=== PATIENT | female | born 1960 | race Caucasian/White ===

== ENCOUNTER 2016-12-09 15:55 | Emergency (ER) | payer OTHER ==
[2016-12-09 18:41] LABS: BASOPHIL# 0.1 X10e3 (0-0.3); BASOPHIL% 0.8 % (0-2.5); EOSINOPHIL% 0.2 % (0.0-7.0); HEMATOCRIT 44.2 % (35.0-45.0); HEMOGLOBIN 14.7 gm/dL (12.0-16.0); LYMPHOCYTE# 1.6 X10e3 (1.0-3.5); LYMPHOCYTE% 20.3 % (17.0-45.0); MEAN CELL VOLUME 83.4 FL (83-96); MEAN CORPUSCULAR HEMOGLOBIN 27.7 PG (28-34); MEAN CORPUSCULAR HGB CONC 33.2 g/dL (30-36); MEAN PLATELET VOLUME 8.8 FL (6.5-11.5); MONOCYTE# 0.4 X10e3 (0-1.0); MONOCYTE% 5.2 % (3.0-12.0); NEUTROPHIL# 5.9 X10e3 (1.5-7.1); NEUTROPHIL% 73.5 % (40-75); PLATELET COUNT 280 X10e3 (140-420); RED BLOOD COUNT 5.29 X10e (3.90-5.30); RED CELL DISTRIBUTION WIDTH 13.8 % (11.0-15.5); WHITE BLOOD COUNT 8.1 X10e3 (4.0-10.5)
[2016-12-09 18:47] LABS: DIFF IND NO
[2016-12-09 19:15] LABS: BILIRUBIN, DIRECT 0.2 mg/dL (0.0-0.2); BILIRUBIN,INDIRECT 1.3 mg/dL (0.0-0.9); BILIRUBIN,TOTAL 1.5 mg/dL (0.2-2.0); BUN/CREATININE RATIO 17.14; CALCIUM SERUM 9.7 mg/dL (8.4-10.2); CREATININE SERUM 0.7 mg/dL (0.6-1.4); GLOM FILT RATE Estimated 96.2 mL/min (>60); POTASSIUM 3.3 mmol/L (3.5-5.1)
[2016-12-09 19:27] LABS: URINE SOURCE CLEAN CATCH
[2016-12-09 19:31] LABS: URINE APPEARANCE CLOUDY; URINE BILIRUBIN NEG (NEG); URINE BLOOD 2+ (NEG); URINE COLOR YELLOW; URINE GLUCOSE NEG (NEG); URINE KETONE 2+ (NEG); URINE LEUKOCYTE ESTERASE 1+ (NEG); URINE NITRATE NEG (NEG); URINE PROTEIN 1+ (NEG); URINE SPECIFIC GRAVITY 1.026 (1.003-1.035); URINE UROBILINOGEN 0.2 MG/DL (NEG)
[2016-12-09 19:34] LABS: CULTURE INDICATED? YES; URINE BACTERIA AUWI 1+ (NEGATIVE); URINE SQUAMOUS EPITHELIAL CELL FEW /[HPF]; UWBCS1 AUWI 25-50 (0-5)
[2016-12-09 20:00] LABS: AMPHETAMINE NEG (NEG); BARBITURATES NEG (NEG); BENZODIAZEPINES POS (NEG); COCAINE NEG (NEG); MARIJUANA POS (NEG); OPIATES POS (NEG); TRICYCLIC ANTIDEPRESSANTS NEG (NEG); U METHADONE POS (NEG)
== END 2016-12-09 23:23 ==
LOC: CED 15:55
PROVIDERS: Student in an Organized Health Care Education/Training Program
DX: F11.23 Opioid dependence with withdrawal (principal); N39.0 Urinary tract infection, site not specified; F19.10 Other psychoactive substance abuse, uncomplicated; Z88.8 Allergy status to other drugs, medicaments and biological substances
CPT/HCPCS: 36415; 80048; 80076; 80307; 81003; 85025; 87086; 96365; 96375; 99285; J2060; J2543

== ENCOUNTER 2016-12-09 20:00 | Inpatient (IN) | payer OTHER ==
--- NOTE | ~2016-12-09 | DS ---
Unit #: [id number] #: [id number] Patient: GONZALO MATHEW [id number] [facility] [address] [place] [address] [id number] MR#: [id number] NAME: GONZALO MATHEW. ROOM: P176 Age: 56 Sex: F Admission Date: 12/10/2016 : 1960 Discharge Date: 12/15/2016 Attending Physician: Sundar Justice M.D. Primary Care Physician: Primary Care Physician No DISCHARGE SUMMARY IDENTIFYING DATA Ms. Mathew is a 56-year-old white female, who is a resident of [place], who was transferred to us from emergency room at [facility] on a voluntary basis. DISCHARGE DIAGNOSES Psychiatric: Opioid dependence, moderate and acute withdrawals; benzodiazepine dependence, moderate and acute withdrawals; opioid-induced mood disorder. Medical: Fibromyalgia, spinal stenosis, bulging disks. Stressors: Moderate psychosocial stressors. HISTORY OF PRESENT ILLNESS Please see initial psychiatric evaluation for details. PAST PSYCHIATRIC HISTORY Please see initial psychiatric evaluation for details. PAST MEDICAL HISTORY Please see initial psychiatric evaluation for details. HOSPITAL COURSE The patient was admitted to the adult psychiatric and chemical dependency unit at [facility] and was oriented to the hospital environment. Routine p.r.n. medications were initiated, and she was started back on her home medications and detox protocol was initiated and she was closely monitored. She was taking medications regularly and was tolerating them fairly well and was able to show a decent therapeutic response with improvement in depression and anxiety and was able to come out of the detox without any complications and was willing to continue treatment on an outpatient basis and as such, it was decided that she will be discharged home and will continue treatment on an outpatient basis. DISCHARGE MEDICATIONS None. DISCHARGE CONDITION Stable. PROGNOSIS Fair. Dictated by... Unit #: [id number] #: [id number] Patient: GONZALO MATHEW Yahir Medeiros/francesco TD: 12/15/2016 11:46 JOB #: [id number] DISCHARGE SUMMARY Page 1 of 1 X Sundar Justice MD X DISCHARGE SUMMARY
--- NOTE | ~2016-12-09 | PN ---
Unit #: [id number] #: [id number] Patient: GONZALO WANG [id number] [facility] [address] [place] [address] [id number] MR#: [id number] NAME: GONZALO WANG. ROOM: 76 Age: 56 Sex: F Admission Date: 12/10/2016 : 1960 Attending Physician: Sundar Justice M.D. Admitting Physician: Sundar Justice M.D. Primary Care Physician: Primary Care Physician Donna NICHOLS NOTES DATE December 11, 2016 DISCUSSION Ms. Wang is a 56-year-old white female, who was seen today and chart was reviewed and the case was discussed with the staff. She has been anxious, withdrawn, and rather seclusive to herself. Meanwhile, she has been cooperative with the treatment recommendations and she has been taking the medications and tolerating them fairly well with no reported side effects. MENTAL STATUS EXAMINATION Middle-aged white female, who was casually dressed with fair personal hygiene and appears to be in no acute distress or discomfort. She was awake and alert on interaction with intact orientation. Her mood is anxious with a congruent affect. The patient denies any suicidal or homicidal ideations. Her insight and judgment remain slightly impaired. TREATMENT PLAN 1. We will continue her on her current medications and treatment protocol, and will monitor her response to the medications, and make further adjustments as needed. 2. We will continue to followup. Dictated by... Yahir Medeiros/pardeep TD: 12/11/2016 11:41 JOB #: [id number] Unit #: [id number] #: [id number] Patient: GONZALO WANG VANIA PROGRESS NOTES Page 1 of 1 X Sundar Justice MD PROGRESS NOTE
--- NOTE | ~2016-12-09 | PN ---
Unit #: [id number] #: [id number] Patient: GONZALO WANG [id number] [facility] [address] [place] [address] [id number] MR#: [id number] NAME: GONZALO WANG. ROOM: P176 Age: 56 Sex: F Admission Date: 12/10/2016 : 1960 Attending Physician: Sundar Justice M.D. Admitting Physician: Sundar Justice M.D. Primary Care Physician: Primary Care Physician Donna NICHOLS NOTES DATE December 13, 2016 DISCUSSION Ms. Wang is a 56-year-old white female, who was seen today and chart was reviewed and the case was discussed with the staff. The patient has been anxious, withdrawn, and reports still not feeling good and unable to sleep at night despite increasing trazodone to 150, and also been complaining of stomach cramps, and feeling restless, and anxious, uncomfortable. MENTAL STATUS EXAMINATION Middle-aged white female, who was casually dressed with fair personal hygiene and appears to be in slight distress and discomfort. She was awake and alert on interaction with intact orientation. Her mood was anxious with a congruent affect. The patient denies any suicidal or homicidal ideations. Her insight and judgment remain slightly impaired. TREATMENT PLAN 1. We will continue her on her current medications and treatment protocol, and will monitor her response to the medications, and make further adjustments as needed. 2. We will switch the trazodone to doxepin. 3. We will continue to followup. Dictated by... Yahir Medeiros/pardeep TD: 12/14/2016 06:41 JOB #: [id number] Unit #: [id number] #: [id number] Patient: GONZALO WANG VANIA PROGRESS NOTES Page 1 of 1 X Sundar Justice MD PROGRESS NOTE
--- NOTE | ~2016-12-09 | PA ---
Unit #: [id number] #: [id number] Patient: GONZALO MATHEW [id number] [facility] [address] [place] [address] [id number] I MR#: [id number] NAME: GONZALO MATHEW. ROOM: P176 Age: 56 Sex: F Admission Date: 12/10/2016 : 1960 Date of Assessment: 12/10/2016 Attending Physician: Sundar Justice M.D. Admitting Physician: Sundar Justice M.D. Primary Care Physician: Primary Care Physician No PSYCHIATRIC ASSESSMENT DATE OF SERVICE 12/10/2016. IDENTIFYING DATA Ms. Mathew is a 56-year-old white female, who is a resident of [place], [place], and was transferred to us from emergency room at [facility] on a voluntary basis. CHIEF COMPLAINT "I've been taking too many pain medications." HISTORY OF PRESENT ILLNESS Ms. Mathew is a 56-year-old white female, who was brought to the hospital by her family and was seen to be quite compromised and sent out to emergency room at [facility] for medical clearance, and upon presentation, the patient stated "I've been taking too many pain medications. My medicine for anxiety ain't working. I'm nervous as a wreck and I did not use to be that way. I'm going to a pain clinic because I have fibromyalgia. I'm always in so much pain, I cannot stand, but I cannot go to my pain clinic and I'm hurting from the withdrawals." The patient reports that she has been using 12 hydrocodone 10 mg a day and 2 to 6 Xanax a day, kind of take at least 2 Xanax a day, but most days I take more than that." She reports that her last use was 3 in the morning when she stated that she took 15 mg hydrocodone and 2 mg Xanax. She does report depression, anxiety, and irritability and was seen to be in significant distress and discomfort with a CIWA of 16 and COWS of 18 indicating significant withdrawals from both opioids and benzodiazepines; however, she denies any suicidal ideations, intent, or plan. SUBSTANCE ABUSE HISTORY The patient reports opioids and benzodiazepines to be her drug of choice and has been using both of those in excess amounts on a daily basis. PAST PSYCHIATRIC HISTORY The patient has had a history of inpatient psychiatric treatment at [facility], and review of the medical records indicate that currently she is not active in any treatment program, is not seeing a psychiatrist, and is not taking any psychotropic medications. PAST MEDICAL HISTORY Fibromyalgia, bulging disks, sciatica, and spinal stenosis. ALLERGIES Unit #: [id number] #: [id number] Patient: GONZALO MATHEW, ElvisBran penn, and Virgil. PERSONAL AND SOCIAL HISTORY A 56-year-old white female, who reports that she is and lives at home with her family and has fairly decent social support system. MENTAL STATUS EXAMINATION Middle-aged white female, who was casually dressed with fair personal hygiene, appears to be in distress and discomfort. She was awake and alert on interaction with intact orientation. Her mood was anxious and depressed with a congruent affect. Her speech was slow and goal directed. She denies any suicidal or homicidal ideations and also denies any auditory or visual hallucinations. Her insight and judgment remain significantly impaired. DIAGNOSTIC IMPRESSION Psychiatric: Opioid dependence, moderate, in acute withdrawals; benzodiazepine dependence, moderate, in acute withdrawals; and opioid-induced mood disorder. Medical: Fibromyalgia, spinal stenosis, and bulging disks. Stressors: Moderate psychosocial stressors. TREATMENT PLAN 1. The patient has presented with a history of substance abuse and mood disorder and has been decompensating and will need inpatient hospitalization for detoxification, safety, and stabilization. We will start her back on her home medications and detox protocol will be initiated as well. 2. Supportive therapy was provided to the patient. 3. Safe, structured, and nourishing environment will be provided. ESTIMATED LENGTH OF STAY 5 to 7 days. ABILITY TO HELP SELF Limited. WILLINGNESS TO HELP SELF The patient appears to be willing to help self. STRENGTHS 1. Communicative. 2. Cooperative. PROBLEMS 1. Chronic dysphoric symptoms. 2. Chronic chemical dependency. 3. Poor social support system. DISCHARGE CRITERIA This will be contingent upon the patient's ability to go through detox without having any significant withdrawal symptoms and her ability to stay safe to herself, particularly after discharge from the hospital. Dictated by... Sundar Justice M.D. Unit #: [id number] #: [id number] Patient: GONZALO MATHEW ANIRUDH/francesco TD: 12/10/2016 18:32 JOB #: [id number] PSYCHIATRIC ASSESSMENT Page 1 of 1 X Sundar Justice MD PSYCHIATRIC ASSESSMENT
--- NOTE | ~2016-12-09 | PN ---
Unit #: [id number] #: [id number] Patient: GONZALO WANG [id number] [facility] [address] [place] [address] [id number] I MR#: [id number] NAME: GONZALO WANG. ROOM: P176 Age: 56 Sex: F Admission Date: 12/10/2016 : 1960 Attending Physician: Sundar Justice M.D. Admitting Physician: Sundar Justice M.D. Primary Care Physician: Primary Care Physician Donna NICHOLS NOTES DATE December 14, 2016 DISCUSSION Ms. Wang is a 56-year-old white female, who was seen today and chart was reviewed and the case was discussed with the staff. She reports doing fairly well but still has been complaining of persistent anxiety and reports that she has been taking her medications and tolerating them fairly well with no reported side effects. MENTAL STATUS EXAMINATION Middle-aged white female, who was casually dressed with fair personal hygiene and appears to be in no acute distress or discomfort. She was awake and alert with impaired attention and concentration. Her mood was anxious with a congruent affect. The patient denies any suicidal or homicidal ideations. Her insight and judgment remain slightly impaired. TREATMENT PLAN 1. We will continue her on her current medications and treatment protocol, and will monitor her response to the medications, and make further adjustments as needed. 2. We will continue to followup. Dictated by... Yaihr Medeiros/pardeep TD: 12/15/2016 08:11 JOB #: [id number] Unit #: [id number] #: [id number] Patient: GONZALO WANG VANIA PROGRESS NOTES Page 1 of 1 X Sundar Justice MD PROGRESS NOTE
--- NOTE | ~2016-12-09 | PN ---
Unit #: [id number] #: [id number] Patient: GONZALO WANG [id number] [facility] [address] [place] [address] [id number] MR#: [id number] NAME: GONZALO WANG. ROOM: P176 Age: 56 Sex: F Admission Date: 12/10/2016 : 1960 Attending Physician: Sundar Justice M.D. Admitting Physician: Sundar Justice M.D. Primary Care Physician: Primary Care Physician Donna CARO PROGRESS NOTES DATE 12/12/2016 DISCUSSION Ms. Wang is a 56-year-old white female who was seen today and chart was reviewed and case was discussed with the staff. She has been anxious, withdrawn and rather seclusive to herself. Meanwhile, she has been cooperative with treatment recommendations and has been taking medications and tolerating them fairly well with no reported side effects. MENTAL STATUS EXAMINATION Middle-aged white female who was casually dressed with fair personal hygiene and appears to be in no acute distress or discomfort. She was awake and alert with intact orientation. Her mood was anxious with congruent affect. She denies any suicidal or homicidal ideation and also denies any auditory or visual hallucinations. Her insight and judgement remains slightly impaired. TREATMENT PLAN 1. Will continue on current medications and treatment protocol and will monitor her response to the medications and make further adjustments as needed. 2. Will continue to follow up. Dictated by... Yahir Medeiros/joesph TD: 12/12/2016 16:29 JOB #: [id number] Unit #: [id number] #: [id number] Patient: GONZALO WANG VANIA PROGRESS NOTES Page 1 of 1 X Sundar Justice MD PROGRESS NOTE
--- NOTE | ~2016-12-09 | HP ---
Unit #: [id number] #: [id number] Patient: GONZALO MATHEW [id number] [place] [address] [id number] MR#: [id number] NAME: GONZALO MATHEW. ROOM: P176 Age: 56 Sex: F Admission Date: 12/10/2016 : 1960 Attending Physician: Sundar Justice M.D. Admitting Physician: Sundar Justice M.D. Primary Care Physician: Primary Care Physician No HISTORY AND PHYSICAL HISTORY OF PRESENT ILLNESS Gonzalo is a 56 year old admitted to [facility] because of her polysubstance abuse which includes opioids and benzodiazepines. PAST MEDICAL HISTORY 1. Long history of polysubstance abuse to include opioids and benzodiazepines. 2. Graves disease. a. Radioactive iodine. 3. Hypothyroidism. PAST SURGICAL HISTORY 1. Right shoulder. 2. x1. ALLERGIES Ceclor, Elavil, Remeron, Lyrica. SOCIAL HISTORY She denies cigarettes and alcohol. Admits to a history of poly-illicit substance abuse. FAMILY HISTORY Medically noncontributory. REVIEW OF SYSTEMS CONSTITUTIONAL: No fever or chills. HEENT: Denies any sore throat, ear pain or runny nose. CARDIOVASCULAR: Denies chest pain, irregular heart rhythm or palpitations. CHEST: Denies shortness of breath or cough. No hemoptysis. GASTROINTESTINAL: Denies nausea, vomiting, diarrhea or chronic constipation. ENDOCRINE: Denies history of increased thirst or urination. No recent significant weight loss or gain. GENITOURINARY: Denies dysuria, frequency, or hematuria. SKIN: Denies any rashes. HEMATOLOGIC: Denies history of increased bleeding or bruising. MUSCULOSKELETAL: Denies any hot, swollen joints. No generalized muscle pain. NEUROLOGIC: Denies problems with vision or speech. No frequent, severe headaches. No numbness, tingling or weakness in any extremities. Denies loss of bladder or bowel control. Unit #: [id number] #: [id number] Patient: GONZALO MATHEW CURRENT MEDICATIONS 1. Detox protocol. 2. Synthroid 0.125 mg daily. 3. Multivitamin 1 daily. PHYSICAL EXAMINATION GENERAL: Alert, well-nourished, in no apparent distress. VITAL SIGNS: Blood pressure 120/84, heart rate 80, respirations 16, temperature 98.6. WEIGHT: 145. HEIGHT: 5 feet 3 inches. SKIN: Warm and dry without rash or lesion. HEENT: Normocephalic. TMs not viewed. Oral and nasal passages clear. Conjunctivae clear. PERRLA. EOMs intact. NECK: Supple without lymphadenopathy or thyromegaly. HEART: Regular rate and rhythm without murmur. LUNGS: Clear. ABDOMEN: Soft, nontender. : Not done. EXTREMITIES: No evidence of cyanosis, clubbing or edema. Moves all without focal deficit. NEUROLOGICAL: Grossly within normal limits. Cranial Nerves: II: Visual amaro are intact. III, IV AND : Extraocular movements are intact. Pupils are equal, round and reactive to light. V: Facial sensation is grossly normal. VII: Facial movements and expression are normal. VIII: Auditory acuity grossly intact. IX, X: Uvula is midline. Phonation is normal. XI: Patient shrugs shoulders and turns head normally. XII: Tongue protrudes in the midline. Sensory and Motor Function: Sensory and motor sensation is grossly normal. Motor: moves all extremities well. Coordination: Gait is normal. Deep Tendon Reflexes: Intact. IMPRESSION Psychiatric admission. RECOMMENDATIONS PSYCHIATRIC: Per psychiatrist. MEDICAL: See no contraindications to participate in facility's activities. MEDICAL PROGNOSIS Good. MEDICAL CONDITION Stable. Dictated by... Dalia Nielsen P.A.-C. for Yahir Estrella/joseph TD: 12/10/2016 18:57 JOB #: [id number] Unit #: [id number] #: [id number] Patient: GONZALO MATHEW HISTORY AND PHYSICAL Page 1 of 1 X Dalia Nielsen HISTORY AND PHYSICAL
== END 2016-12-15 11:07 | DRG 897 ==
LOC: P1E 12-10 00:10
PROC: HZ2ZZZZ Detoxification Services for Substance Abuse Treatment (ICD-10-PCS; principal; 2016-12-10)
DX: F11.23 Opioid dependence with withdrawal (principal); F11.24 Opioid dependence with opioid-induced mood disorder; E03.9 Hypothyroidism, unspecified; Z88.8 Allergy status to other drugs, medicaments and biological substances; M79.7 Fibromyalgia; F13.239 Sedative, hypnotic or anxiolytic dependence with withdrawal, unspecified
CPT/HCPCS: 86592